=== PATIENT | female | born 1995 | race Hispanic/Latino ===

== ENCOUNTER 2018-03-19 13:51 | Observation (INO) | payer SELFPAY ==
[~2018-03-19] VITALS: Ht 162.6 cm; Wt 56.7 kg
[2018-03-19] MEDS ORDERED: SODIUM CHLORIDE 0.9% 1000ML 1,000 ML ONE (14:31)
[2018-03-19] MEDS ORDERED: SODIUM CHLORIDE 0.9% 1000ML 1,000 ML IV STA (14:45)
[2018-03-19 14:56] LABS: BASOPHILS % 0.7 % (0.0-1.0); EOSINOPHILS # (AUTO) 0.1 (0.0-0.4); EOSINOPHILS % 1.8 % (0.0-6.0); HEMATOCRIT 36.7 % (34.2-44.1); HEMOGLOBIN 12.3 g/dL (12.0-16.0); LYMPHOCYTES # (AUTO) 1.5 (1.0-3.2); LYMPHOCYTES % 27.5 % (18.0-39.1); MEAN CORPUSCULAR HGB CONC 33.5 g/dL (31-35); MEAN CORPUSCULAR VOLUME 86.6 fL (81-99); MONOCYTES # (AUTO) 0.3 (0.2-0.8); MONOCYTES % 4.6 % (4.4-11.3); NEUTROPHILS # (AUTO) 3.6 (2.1-6.9); NEUTROPHILS % 65.2 % (38.7-80.0); PLATELET COUNT 366 x10e3/uL (140-360); RED BLOOD COUNT 4.24 x10e6/uL (3.6-5.1); RED CELL DISTRIBUTION WIDTH 12.8 % (11.7-14.4)
[2018-03-19 15:06] LABS: INR 0.91; PROTHROMBIN TIME 13.1 seconds (11.9-14.5)
[2018-03-19 15:07] LABS: PARTIAL THROMBOPLASTIN TIME 32.2 seconds (23.8-35.5)
[2018-03-19 15:14] LABS: ALANINE AMINOTRANSFERASE 12 IU/L (0-55); ALBUMIN 3.7 g/dL (3.5-5.0); ALBUMIN/GLOBULIN RATIO 1.1 (0.8-2.0); ALKALINE PHOSPHATASE 51 IU/L (40-150); ANION GAP 11.7 mmol/L (8-16); BLOOD UREA NITROGEN 6 mg/dL (7-26); BUN/CREATININE RATIO 8 (6-25); CALCIUM 9.3 mg/dL (8.4-10.2); CARBON DIOXIDE 25 mmol/L (22-29); CHLORIDE 102 mmol/L (98-107); CREATININE, SERUM 0.74 mg/dL (0.57-1.11); EST GLOMERULAR FILTRATION RATE > 60 ML/MIN (60-); GLUCOSE 70 mg/dL (74-118); SODIUM 136 mmol/L (136-145)
[2018-03-19 15:17] LABS: POTASSIUM 2.7 mmol/L (3.5-5.1)
[2018-03-19] MEDS ORDERED: DEXTROSE 5%/0.45% SOD CHL 1,000 ML IV ONE ×2 (15:30)
[2018-03-19] MEDS ORDERED: MULTIVITAMINS- 12 INJECTION 10 ML, FOLIC ACID MDV 5 MG, THIAMINE HCL INJ 100 MG in SODI... IV ONE (15:30)
[2018-03-19] MEDS ORDERED: POTASSIUM CHLORIDE 10MEQ/100ML 200 ML IV ONE (15:30)
[2018-03-19] MEDS ORDERED: POTASSIUM CHLORIDE 10MEQ/100ML 100 ML IV ONE ×2 (15:45→19:45)
[2018-03-19] MEDS ORDERED: POTASSIUM CHLORIDE 20 MEQ TAB CR PO NR (15:45)
[2018-03-19 19:36] LABS: AMPHETAMINES SCREEN,URINE NEGATIVE (NEGATIVE); BENZODIAZEPINES SCREEN,URINE NEGATIVE (NEGATIVE); BILIRUBIN,URINE NEGATIVE (NEGATIVE); CLARITY,URINE CLEAR (CLEAR); COLOR,URINE YELLOW (YELLOW); KETONES,URINE NEGATIVE (NEGATIVE); LEUKOCYTE ESTERASE ,URINE NEGATIVE (NEGATIVE); NITRITE,URINE NEGATIVE (NEGATIVE); PHENCYCLIDINE SCREEN,URINE NEGATIVE (NEGATIVE); PREGNANCY TEST, URINE NEGATIVE (NEGATIVE); PROTEIN,URINE DIPSTICK NEGATIVE (NEGATIVE); URINE UROBILINOGEN 0.2 mg/dL (0.2 - 1)
[2018-03-19 19:48] LABS: EPITHELIAL CELLS,URINE FEW /LPF
[2018-03-19 20:30] VITALS: BP 115/74
[2018-03-19 20:45] VITALS: BP 115/74
[2018-03-20] VITALS (9 sets, daily range): BP systolic 88–116; BP diastolic 50–80
[2018-03-20 07:52] LABS: ANION GAP 9.9 mmol/L (8-16); BLOOD UREA NITROGEN < 5 mg/dL (7-26); CALCIUM 8.8 mg/dL (8.4-10.2); CARBON DIOXIDE 24 mmol/L (22-29); CHLORIDE 109 mmol/L (98-107); CREATININE, SERUM 0.62 mg/dL (0.57-1.11); EST GLOMERULAR FILTRATION RATE > 60 ML/MIN (60-); GLUCOSE 76 mg/dL (74-118); POTASSIUM 3.9 mmol/L (3.5-5.1); SODIUM 139 mmol/L (136-145)
[2018-03-20 07:58] LABS: BUN/CREATININE RATIO 8 (6-25)
[2018-03-20] MEDS: POTASSIUM CHLORIDE 20 MEQ TAB CR PO SCH (09:40)
[2018-03-20] MEDS: FAMOTIDINE 20 MG TAB PO SCH ×2 (09:40→18:09)
[2018-03-20] MEDS: SERTRALINE HCL 50 MG TAB PO SCH (09:40)
[2018-03-20] MEDS: SODIUM CHLORIDE 0.9% 1000ML 1,000 ML IV SCH ×3 (09:40→23:21)
[2018-03-20] MEDS: MULTIVITAMINS/MINERALS TAB PO SCH (09:40)
--- NOTE | 2018-03-20 09:41 | History and Physical ---
PRIMARY CARE PHYSICIAN: None. CHIEF COMPLAINT: Leg bruising for 1 month. HISTORY OF PRESENT ILLNESS: This is a 22-year-old woman with a history of bulimia nervosa and mood disorder, now developing right leg bruising and small bruise on the left leg for the past month. She went to a local clinic and was given iron supplementation but asked to go to a zoning technician for further management. The patient is now here for management. She has crying episodes due to her frustration with her medical problems. She recently induced vomiting as recently as yesterday. The patient also has intermittent diarrhea and nausea. PAST MEDICAL HISTORY: Bulimia nervosa, mood disorder. PAST SURGICAL HISTORY: None. ALLERGIES: PER ELECTRONIC MEDICAL RECORD. FAMILY/SOCIAL HISTORY: The patient is single. She has no children. No alcohol, illicits or cigarettes. She works as a biological aide in special education. MEDICATIONS: Per electronic medical record. REVIEW OF SYSTEMS: Denies any dizziness or chest pain. Denies any fever, chills, sweats, nausea, vomiting, diarrhea, headache, vision changes. PHYSICAL EXAMINATION VITAL SIGNS: Reviewed. GENERAL: A tired-appearing woman resting in bed. HEENT: Anicteric. CARDIOVASCULAR: Normal S1 and S2. LUNGS: Moderate breath sounds. ABDOMEN: Soft, nontender, nondistended. EXTREMITIES: She has small bruising on the right calf, petechial lesion in appearance. Left calf is minimal, much less. SKIN: Dry. PSYCHIATRIC: Flat affect. Crying at this time. NEUROLOGIC: Alert, oriented times 3, moving all extremities. LABS: Reviewed. MEDICATIONS: Reviewed. ASSESSMENT: A 22-year-old woman. 1. Hypokalemia secondary to induced vomiting. 2. Bulimia nervosa. 3. Hypotension. 4. Mood disorder. 5. Depressive episode/depression. PLAN 1. Rehydrate the patient. 2. Replace potassium and recheck. 3. Place on potassium daily due to continued induction of vomiting. 4. Restart home antidepressant of Zoloft. 5. Start multivitamin and multiminerals. 6. Use Pepcid for GI prophylaxis and SCD for DVT prophylaxis. 7. Reassess labs in the morning. Job#: [id number]
[2018-03-20] MEDS ORDERED: HYDROXYZINE HCL 25 MG TAB PO PRN (17:30)
[2018-03-20] MEDS: ONDANSETRON HCL INJ 2 MG/ML VIAL IV PRN (18:09)
[2018-03-21] VITALS: BP 111/62
[2018-03-21 04:00] VITALS: BP 95/51
[2018-03-21] MEDS ORDERED: HYDROXYZINE HCL25 MG PO (07:31)
[2018-03-21] MEDS ORDERED: ZOLOFT50 MG PO (07:31)
[2018-03-21] MEDS ORDERED: FAMOTIDINE20 MG PO (07:31)
[2018-03-21] MEDS ORDERED: KLOR-CON M2020 MEQ PO (07:31)
[2018-03-21] MEDS ORDERED: Multivitamins/Minerals PO (07:31)
[2018-03-21 07:33] VITALS: BP 91/54
[2018-03-21 08:01] VITALS: BP 91/54
[2018-03-21 08:47] LABS: BASOPHILS # (AUTO) 0.1 (0.0-0.1); BASOPHILS % 1.1 % (0.0-1.0); EOSINOPHILS # (AUTO) 0.3 (0.0-0.4); EOSINOPHILS % 4.7 % (0.0-6.0); HEMATOCRIT 32.8 % (34.2-44.1); HEMOGLOBIN 10.8 g/dL (12.0-16.0); LYMPHOCYTES # (AUTO) 2.6 (1.0-3.2); LYMPHOCYTES % 48.6 % (18.0-39.1); MEAN CORPUSCULAR HEMOGLOBIN 29.3 pg (28-32); MEAN CORPUSCULAR HGB CONC 32.9 g/dL (31-35); MEAN CORPUSCULAR VOLUME 89.1 fL (81-99); MONOCYTES # (AUTO) 0.3 (0.2-0.8); NEUTROPHILS # (AUTO) 2.1 (2.1-6.9); NEUTROPHILS % 39.4 % (38.7-80.0); PLATELET COUNT 286 x10e3/uL (140-360); RED BLOOD COUNT 3.68 x10e6/uL (3.6-5.1)
[2018-03-21 08:59] LABS: ANION GAP 8.9 mmol/L (8-16); BLOOD UREA NITROGEN < 5 mg/dL (7-26); CALCIUM 8.3 mg/dL (8.4-10.2); CARBON DIOXIDE 26 mmol/L (22-29); CHLORIDE 110 mmol/L (98-107); CREATININE, SERUM 0.67 mg/dL (0.57-1.11); EST GLOMERULAR FILTRATION RATE > 60 ML/MIN (60-); GLUCOSE 78 mg/dL (74-118); PHOSPHORUS 3.2 MG/DL (2.3-4.7); POTASSIUM 3.9 mmol/L (3.5-5.1); SODIUM 141 mmol/L (136-145)
[2018-03-21] MEDS: ONDANSETRON HCL INJ 2 MG/ML VIAL IV PRN (09:01)
[2018-03-21] MEDS: SERTRALINE HCL 50 MG TAB PO SCH (09:01)
[2018-03-21] MEDS: POTASSIUM CHLORIDE 20 MEQ TAB CR PO SCH (09:01)
[2018-03-21] MEDS: FAMOTIDINE 20 MG TAB PO SCH (09:01)
[2018-03-21] MEDS: MULTIVITAMINS/MINERALS TAB PO SCH (09:01)
[2018-03-21 09:04] LABS: BUN/CREATININE RATIO 7 (6-25)
== END 2018-03-21 11:13 | disposition home or self-care (01) ==
LOC: ER 13:51 → ERHOLD 15:26 → MED/SURG2 20:30
PROVIDERS: ADMIT Internal Medicine; ATTEND Internal Medicine
DX: E87.6 Hypokalemia (principal); R55 Syncope and collapse; S80.11XA Contusion of right lower leg, initial encounter; F50.2 Bulimia nervosa; F39 Unspecified mood [affective] disorder; I95.9 Hypotension, unspecified; F32.9 Major depressive disorder, single episode, unspecified
CPT/HCPCS: 36415 ×3; 80048 ×2; 80053; 80307; 81001; 81025; 82533; 83735 ×2; 84100; 84443; 85025 ×2; 85610; 85730; 86900; 96361; 99284; G0378 ×3; J2405 ×2; J3410; J3480; J7030 ×2

== ENCOUNTER 2018-09-02 13:27 | Emergency (ER) | payer SELFPAY ==
[~2018-09-02] VITALS: Ht 162.6 cm; Wt 56.7 kg
[~2018-09-02 13:27] MED LIST: FAMOTIDINE20 MG PO; HYDROXYZINE HCL25 MG PO; KLOR-CON M2020 MEQ PO; Multivitamins/Minerals PO; ZOLOFT50 MG PO
--- NOTE | 2018-09-02 13:45 | NUR ---
patient in room in bed. changed into paper scrubs. 1:1 sitter in room with patient. all items removed from room.
--- NOTE | 2018-09-02 13:58 | NUR ---
Pt noted to have scarring to right hand round circles. Reports its from Bulimia. States when she would vomit.
--- NOTE | 2018-09-02 14:00 | NUR ---
patient in room in bed. awake and alert. no s/s of acute distress. resp even and non-labored.
--- NOTE | 2018-09-02 14:00 | NUR ---
Pt states she does not want any family in the room at the time. Stated she will notify staff when she would like visitors. Primary nurse notified. Pt searched for any harmful belongings. Pt belongings collected in the presence of sitter and itemized on sheet.
[2018-09-02 15:02] LABS: BASOPHILS # (AUTO) 0.1 (0.0-0.1); BASOPHILS % 0.6 % (0.0-1.0); EOSINOPHILS # (AUTO) 0.1 (0.0-0.4); EOSINOPHILS % 0.7 % (0.0-6.0); HEMATOCRIT 37.7 % (34.2-44.1); HEMOGLOBIN 12.4 g/dL (12.0-16.0); LYMPHOCYTES # (AUTO) 1.2 (1.0-3.2); LYMPHOCYTES % 14.7 % (18.0-39.1); MEAN CORPUSCULAR HEMOGLOBIN 28.2 pg (28-32); MEAN CORPUSCULAR HGB CONC 32.9 g/dL (31-35); MEAN CORPUSCULAR VOLUME 85.9 fL (81-99); MONOCYTES # (AUTO) 0.4 (0.2-0.8); MONOCYTES % 4.3 % (4.4-11.3); NEUTROPHILS # (AUTO) 6.4 (2.1-6.9); NEUTROPHILS % 79.3 % (38.7-80.0); PLATELET COUNT 494 x10e3/uL (140-360); RED BLOOD COUNT 4.39 x10e6/uL (3.6-5.1); RED CELL DISTRIBUTION WIDTH 12.7 % (11.7-14.4)
[2018-09-02 15:11] LABS: AMPHETAMINES SCREEN,URINE NEGATIVE (NEGATIVE); BENZODIAZEPINES SCREEN,URINE POSITIVE (NEGATIVE); PHENCYCLIDINE SCREEN,URINE NEGATIVE (NEGATIVE)
--- NOTE | 2018-09-02 15:11 | NUR ---
patient in room in bed. resting quietly with eyes closed. no s/s of acute distress. resp even and non-labored.
[2018-09-02 15:17] LABS: ALANINE AMINOTRANSFERASE 12 IU/L (0-55); ALBUMIN 3.6 g/dL (3.5-5.0); ALKALINE PHOSPHATASE 66 IU/L (40-150); ANION GAP 11.5 mmol/L (8-16); BLOOD UREA NITROGEN 9 mg/dL (7-26); BUN/CREATININE RATIO 11 (6-25); CALCIUM 9.6 mg/dL (8.4-10.2); CARBON DIOXIDE 27 mmol/L (22-29); CHLORIDE 100 mmol/L (98-107); CREATINE KINASE 103 IU/L (29-168); CREATININE, SERUM 0.79 mg/dL (0.57-1.11); EST GLOMERULAR FILTRATION RATE > 60 ML/MIN (60-); GLUCOSE 87 mg/dL (74-118); POTASSIUM 3.5 mmol/L (3.5-5.1); SODIUM 135 mmol/L (136-145)
[2018-09-02 15:20] LABS: ACETAMINOPHEN < 3 ug/mL (10-30); SALICYLATE < 5.0 mg/dL (0-30)
[2018-09-02 15:26] LABS: INR 0.92; PROTHROMBIN TIME 12.8 seconds (11.9-14.5)
[2018-09-02 15:27] LABS: PARTIAL THROMBOPLASTIN TIME 30.9 seconds (23.8-35.5)
--- NOTE | 2018-09-02 16:26 | NUR ---
patient in room in bed. resting quietly with eyes closed. no s/s of acute distress. resp even and non-labored.
--- NOTE | 2018-09-02 16:57 | NUR ---
SPOKE WITH REYNA FROM MAT TEAM AND STATES HE WILL PAGE A MAT TEAM TECH AND THEY WILL CALL BACK FOR MORE INFORMATION.
--- NOTE | 2018-09-02 17:01 | NUR ---
patient in room in bed. awake and alert. pending MAT arrival
[2018-09-02 17:37] LABS: BILIRUBIN,URINE NEGATIVE (NEGATIVE); CLARITY,URINE SL CLOUDY (CLEAR); COLOR,URINE YELLOW (YELLOW); KETONES,URINE NEGATIVE (NEGATIVE); LEUKOCYTE ESTERASE ,URINE NEGATIVE (NEGATIVE); NITRITE,URINE NEGATIVE (NEGATIVE); PROTEIN,URINE DIPSTICK NEGATIVE (NEGATIVE); URINE UROBILINOGEN 0.2 mg/dL (0.2 - 1)
[2018-09-02 17:48] LABS: EPITHELIAL CELLS,URINE FEW /LPF
--- NOTE | 2018-09-02 18:29 | NUR ---
MAT here to eval patient
[2018-09-02] MEDS: ACETAMINOPHEN 325 MG TAB PO PRN (19:31)
--- NOTE | 2018-09-02 22:00 | NUR ---
PT RESTING COMFORTABLY WITH EYES CLOSED
--- NOTE | 2018-09-02 23:39 | NUR ---
PABLO GUARDADO AT BEDSIDE, EXPLAINED TO PT THAT WE ARE WAITING FOR THE WARRANT FROM THE [employer] INSTRUMENT REPAIRER
--- NOTE | 2018-09-03 03:11 | NUR ---
AWAKE ALERT SKIN W/D RESP NONLAB. NAD NOTED. SITTER AT BEDSIDE
--- NOTE | 2018-09-03 04:45 | NUR ---
SPOKE TO MAT TEAM, REP STATES, "AN MAINTENANCE PORTER IS STILL NEEDED, SOMEONE WILL COME OUT IN THE MORNING TO DO IT." REP UNAWARE OF WHAT "MAINTENANCE PORTER" IS, ASKED FOR MAT CORPORATE PHYSICAL SECURITY SUPERVISOR TO CALL ER
[2018-09-03] MEDS: ACETAMINOPHEN 325 MG TAB PO PRN (04:52)
--- NOTE | 2018-09-03 06:23 | NUR ---
SIGNED JOHAN REC'D VIA FAX AND PLACED ONTO PTS CHART
--- NOTE | 2018-09-03 06:24 | NUR ---
PT RESTING COMFORTABLY WITH EYES CLOSED. SITTER AT BEDSIDE
--- NOTE | 2018-09-03 06:42 | NUR ---
EXCLUSIONARY FORM AND SUMMARY REPORT FAXED TO [facility]
--- NOTE | 2018-09-03 07:00 | NUR ---
ASSUMED CARE AT THIS TIME. SITTER AT BEDSIDE. PATIENT LAYING IN BED WITH EYES CLOSED. SKIN WARM AND DRY. RESP EVEN AND UNLABORED. NO SIGNS PF ACUTE DISTRESS NOTED AT THIS TIME. ROOM INSPECTED FOR HARMFUL OBJECTS.
--- NOTE | 2018-09-03 09:23 | NUR ---
SPOKE WITH KATHLEEN OSORIO MAT TEAM, STATES THAT A GAME MODERATOR IS EN ROUTE TO COMPLETE AN ORDER OF PROTECTIVE CUSTODY.
--- NOTE | 2018-09-03 09:30 | NUR ---
PATIENT AWAKE AND ALERT SITTING IN BED. SITTER AT BEDSIDE. RESP EVEN AND UNLABORED. SKIN WARM AND DRY. NO SIGNS OF ACUTE DISTRESS NOTED AT THIS TIME. DENIES ANY C/O AT THIS TIME.
--- NOTE | 2018-09-03 10:01 | NUR ---
KAYA , MAT TEAM, IN DPEARTMENT REVIEWING JOHAN AND CLINICAL PAPERWORK.
--- NOTE | 2018-09-03 10:14 | NUR ---
MAT TEAM KAYA HERE TO SEE PT, LOOKING AT PT EVALUATING FILING WITH COURTS AND THEN WILL CALL TO GET TRANSPORT WHEN BED AVAILABLE AT [facility].
--- NOTE | 2018-09-03 10:22 | NUR ---
SPOKE WITH FÉLIX WANG TEAM REP, STATES [facility] NEEDS THE EXCULSIONARY FORM AND H&P NEEDS TO BE RE-FAXED TO MAT TEAM OFFICE. NOTIFIED FÉLIX MAURO TEAM REP, CURRENTLY IN ER, TO FAX EXCULSIONARY FORM AND H&P. PAPERWORK FAXED BY [place].
--- NOTE | 2018-09-03 10:54 | NUR ---
PER DIONI CASE PT CAN HAVE FAMILY VISIT AND KEEP CELL PHONE ON HER; PT BROUGHT FOOD WITH THEM NURSE WENT THROUGH FOOD TO ENSURE PT/STAFF SAFETY
--- NOTE | 2018-09-03 11:00 | NUR ---
VERBAL REPORT GIVEN TO DORCAS MILLER. NO SIGNS OF ACUTE DISTRESS NOTED AT THIS TIME. SITTER AT BEDSIDE.
--- NOTE | 2018-09-03 11:40 | NUR ---
SPOKE WITH [place] FROM MAT TEAM, STATES SHE DOES NOT HAVE A SIGNED COPY OF JOHAN, AND WAS INFORMED THAT JOHAN WAS ALREADY SIGNED BY A WEBSITE ADMIN. CURRENT COPY OF SIGNED JOHAN BY WEBSITE ADMIN FAXED TO [place] AT [facility].
--- NOTE | 2018-09-03 12:34 | NUR ---
PT SITTING IN ROOM IN CHAIR VISITING WITH FRIENDS/FAMILY NO DISTRESS NOTED AT THIS TIME SITTER IN ROOM WITH PT; PT APPEARS CALM AND LAUGHING WITH VISTIORS
--- NOTE | 2018-09-03 14:53 | NUR ---
CALLED KAYA [phone] WITH MAT TEAM FOR UPDATE, SHE STATES [facility] IS CLEANING ROOMS AND MOVING PTS TO GET A ROOM SHOULD HAVE ROOM AVAILABLE IN 1 TO 2 HOURS. SHE WILL CALL AND CHECK OUT WITH ME PERSONALLY BEFORE SHE CLOSES THE CASE.
--- NOTE | 2018-09-03 19:10 | NUR ---
recieved patient in paper scrubs sitter at bedside, family next to patient
--- NOTE | 2018-09-03 21:00 | NUR ---
patient with family having dinner
--- NOTE | 2018-09-03 22:34 | NUR ---
CALLED MAT TEAM AND SPOKE WITH REYNA ABOUT HAVING PATIENT RE EVALUATED.
--- NOTE | 2018-09-03 23:00 | NUR ---
patient is sitting in a chair talking to sitter, no distress noted
--- NOTE | 2018-09-04 01:00 | NUR ---
patient sitting in chair talking to sitter
--- NOTE | 2018-09-04 03:00 | NUR ---
patient sleeping in bed, sitter at bedside
--- NOTE | 2018-09-04 05:14 | NUR ---
patient sleeping in bed, no distress noted
--- NOTE | 2018-09-04 09:17 | NUR ---
Spoke with judith Xiong, spoke with medical office secretary (Isabelle) and spoke with Nalini ([facility] director social welfare). After multiple conversation with all above, Paulina is to come at 10:00 to do a re-eval, Nalini will come to ER and Tyrese will be called to collaberate with ER chdakota, Tyrese, [place] and ER doctor for plan of care for pt. All information forwarded to ER chg Adina.
--- NOTE | 2018-09-04 09:20 | NUR ---
CALLED MAT TEAM REFERRAL LINE THIS MORNING AT 730 WHEN ARRIVED AT [facility] TO GET UPDATE TO WHY PT IS STILL IN BUILDING, WAS TOLD THAT PT WAS DENIED TO [facility] DUE TO NOT RECEIVING CORRECT PAPERWORK. I WAS TOLD BY PERSON ON PHONE I NEEDED TO SPEAK WITH JESSICA IN ED TO FOLLOW UP THAT ANOTHER MAT TEAM REP WAS COMING OUT DUE TO DENIAL. WENT TO ED AND SPOKE WITH JESSICA, SHE AND I TOGETHER CALLED MAT TEAM LINE AND SAME PERSON ON PHONE BEGAN GIVING DIFFERENT STORY AND INTERRUPTING US AND LETTING US KNOW THAT SHE HAD NOT PULLED THE RECORD ASKED FOR ASSOCIATE PROFESSOR OF BIOLOGY TO BE CALLED (KELLY) AND RETURN OUR CALL. HE STATES THAT HE IS UNSURE WHY WE WERE GETTING THE DIFFERENT UPDATES FROM DIFFERENT PEOPLE BUT ASSURED US THAT HE WAS SENDING GONZALO TO FACILITY TODAY TO RE-EVAL PT TO DETERMINE IS SHE STILL MEETS CRITERIA AND WILL BE ABLE TO GET PLACED TODAY IF SHE STILL MEETS CRITERIA AND WILL HAVE STAFF ASSIST US IN BEING ABLE TO PROCESS THIS PT TODAY.
--- NOTE | 2018-09-04 10:16 | NUR ---
THA PITTS RN FROM MAT TEAM IN DEPARTMENT, TALKING TO TOP HAT BODY MAKERTOM AND REVIEWING PAPERWORK ON CHART.
--- NOTE | 2018-09-04 10:35 | NUR ---
THA PITTSRN, MAT TEAM REP, AT BEDSIDE FOR PATIENT EVAL.
--- NOTE | 2018-09-04 11:14 | NUR ---
MAT TEAM REP, THA PITTS RN DISCUSSING THE CURRENT PLAN OF CARE WITH DR MARLEY AND ER CHARGE NURSE. PER MAT TEAM RECCOMANDATION, PATIENT OK TO RECEIVE OUTPATIENT PSYCH SERVICES AND PATIENT REPORTS SHE IS ON A WAITING LIST FOR A PSYCHIATRIST,OK TO D/C HOME WITH OUTPATIENT SERVICES, FAMILY MEMBER WILLING TO CREATIVE WRITING TEACHER PATIENT UPON D/C. LEXAT DENIES SUICIDAL AND HOMICIDAL IDEATIONS AT THIS TIME, AWAKE AND ALERT. NO SIGNS OF ACUTE DISTRESS NOTED AT THIS TIME. PATIENT VERBALIZED UNDERSTANDING OF THE CURRENT PLAN OF CARE AND AVAILABLE OUTPATIENT RESOURCES.
--- NOTE | 2018-09-04 11:19 | NUR ---
DR MARLEY PROVIDED WRITTEN ORDERS TO [facility] TEAM REP, THA PITTS RN. THA PITTS STATES THAT SHE WILL FAX DOCTORS WRITTEN ORDERS AND PAPERWORK TO THE [facility] TO VOID THE CURRENT MENTAL [facility] WARRANT.
--- NOTE | 2018-09-04 11:30 | NUR ---
D/C ORDERS FAXED TO [facility] BY THA PITTS RN , [facility] TEAM REP.
--- NOTE | 2018-09-04 11:33 | NUR ---
NOTIFIED TOM FILLER OPERATOR, OF THE CURRENT PLAN OF CARE.
--- NOTE | 2018-09-04 12:04 | NUR ---
PER YUDITH OTSCANO MAT TEAM REP, ASHER HAS RECIEVED DROP LETTER AND JOHAN IS D/C AND PT OK TO D/C HOME WITH FAMILY
[2018-09-04 13:32] VITALS: BP 118/83
--- NOTE | 2018-09-04 13:36 | NUR ---
FAMILY PICKED PT UP AND TOOK HOME
== END 2018-09-04 13:35 | disposition home or self-care (01) ==
LOC: ER 13:27
DX: R45.851 Suicidal ideations (principal); F33.2 Major depressive disorder, recurrent severe without psychotic features
CPT/HCPCS: 36415; 80053; 80307; 80320; 80329; 81001; 81025; 82550; 82553; 84443; 84484; 85025; 85610; 85730; 87086; 93005

== ENCOUNTER 2019-02-15 19:11 | Emergency (ER) | payer SELFPAY ==
[~2019-02-15] VITALS: Ht 162.6 cm; Wt 56.7 kg
[2019-02-15 20:35] LABS: BASOPHILS # (AUTO) 0.1 (0.0-0.1); BASOPHILS % 0.9 % (0.0-1.0); EOSINOPHILS # (AUTO) 0.1 (0.0-0.4); EOSINOPHILS % 1.2 % (0.0-6.0); HEMATOCRIT 36.7 % (34.2-44.1); LYMPHOCYTES # (AUTO) 1.5 (1.0-3.2); LYMPHOCYTES % 14.8 % (18.0-39.1); MEAN CORPUSCULAR HEMOGLOBIN 28.1 pg (28-32); MEAN CORPUSCULAR HGB CONC 32.7 g/dL (31-35); MEAN CORPUSCULAR VOLUME 85.9 fL (81-99); MONOCYTES # (AUTO) 0.5 (0.2-0.8); MONOCYTES % 4.4 % (4.4-11.3); NEUTROPHILS # (AUTO) 8.2 (2.1-6.9); NEUTROPHILS % 78.5 % (38.7-80.0); PLATELET COUNT 472 x10e3/uL (140-360); RED BLOOD COUNT 4.27 x10e6/uL (3.6-5.1); RED CELL DISTRIBUTION WIDTH 12.6 % (11.7-14.4)
[2019-02-15 20:44] LABS: BILIRUBIN,URINE NEGATIVE (NEGATIVE); CLARITY,URINE CLEAR (CLEAR); COLOR,URINE YELLOW (YELLOW); KETONES,URINE NEGATIVE (NEGATIVE); LEUKOCYTE ESTERASE ,URINE NEGATIVE (NEGATIVE); NITRITE,URINE NEGATIVE (NEGATIVE); PROTEIN,URINE DIPSTICK NEGATIVE (NEGATIVE); URINE UROBILINOGEN 0.2 mg/dL (0.2 - 1)
[2019-02-15 20:57] LABS: ALANINE AMINOTRANSFERASE 17 IU/L (0-55); ALBUMIN 3.8 g/dL (3.5-5.0); ALBUMIN/GLOBULIN RATIO 1.2 (0.8-2.0); ALKALINE PHOSPHATASE 60 IU/L (40-150); ANION GAP 15.3 mmol/L (8-16); BLOOD UREA NITROGEN < 5 mg/dL (7-26); CALCIUM 8.7 mg/dL (8.4-10.2); CARBON DIOXIDE 25 mmol/L (22-29); CHLORIDE 101 mmol/L (98-107); EST GLOMERULAR FILTRATION RATE > 60 ML/MIN (60-); GLUCOSE 87 mg/dL (74-118); POTASSIUM 3.3 mmol/L (3.5-5.1); SODIUM 138 mmol/L (136-145)
[2019-02-15 21:01] LABS: BACTERIA,URINE RARE /HPF; EPITHELIAL CELLS,URINE FEW /LPF; RBC,URINE 0-5 /HPF (0-5); WBC,URINE (MAN) 0-5 /HPF (0-5)
[2019-02-15 21:02] LABS: BUN/CREATININE RATIO 7 (6-25)
[2019-02-15] MEDS ORDERED: POTASSIUM CHLORIDE 20 MEQ TAB CR PO STA (21:40)
[2019-02-15 21:57] VITALS: BP 105/85
== END 2019-02-15 22:04 | disposition home or self-care (01) ==
LOC: ER 19:11
DX: R42 Dizziness and giddiness (principal); E87.6 Hypokalemia; K52.9 Noninfective gastroenteritis and colitis, unspecified; F50.2 Bulimia nervosa
CPT/HCPCS: 36415; 80053; 81001; 81025; 85025; 93005; 99283

== ENCOUNTER 2022-02-14 14:00 | Emergency (ER) | payer OTHER ==
[~2022-02-14] VITALS: Ht 162.6 cm; Wt 86.2 kg
[2022-02-14] MEDS ORDERED: TRIAMCINOLONE A15 G1 TOP (14:57)
== END 2022-02-14 15:01 | disposition home or self-care (01) ==
LOC: FSED 14:07
DX: R21 Rash and other nonspecific skin eruption (principal); Z33.1 Pregnant state, incidental; D64.9 Anemia, unspecified; F39 Unspecified mood [affective] disorder
CPT/HCPCS: 99282